=== PATIENT | female | born 1995 | race Caucasian/White ===

== ENCOUNTER 2019-01-02 16:00 | Emergency (ER) | payer OTHER ==
--- NOTE | 2019-01-02 16:33 | ED Physician Documentation ---
PD HPI URI - Stated complaint Stated Complaint: SORE THROAT RT EAR PX - Chief complaint Chief Complaint: Heent - History obtained from History obtained from: Patient - History of Present Illness Timing - onset: How many weeks ago (3) Timing duration: Weeks (3) Timing details: Gradual onset Associated symptoms: Ear pain, Sore throat. No: Fever, Chills Improves by: Nothing Worsened by: Other (nothing) Recently seen: Clinic - Additional information Additional information: patient with L ear pain, sore throat x 3 weeks. Was placed on pseudophed and penicillin and ibuprofen. no fevers or chills. no drainage from the ears. Review of Systems Constitutional: denies: Fever, Chills Nose: reports: Congestion. 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 HEENT: None Psych: None Musculoskeletal: None Derm: None - Past Surgical History Past Surgical History: No - Present Medications Home Medications: Ambulatory Orders Medication Instructions Recorded Confirmed Amox/Clav 875/125 [Augmentin] 1 each PO Q12H #20 tablet 01/02/19 predniSONE [Prednisone] 40 mg PO DAILY #10 tablet 01/02/19 - Allergies Allergies/Adverse Reactions: Allergies Allergy/AdvReac Type Severity Reaction Status Date / Time morphine AdvReac Respiratory Verified 01/02/19 16:10 - Social History Does the pt smoke?: No Smoking Status: Never smoker Does the pt drink ETOH?: No Does the pt have substance abuse?: No - Immunizations Immunizations are current?: Yes - POLST Patient has POLST: No PD ED PE NORMAL - Vitals Vital signs reviewed: Yes - General General: Alert and oriented X 3, No acute distress - HEENT HEENT: Moist mucous membranes, Pharynx benign (posterior oropharygeal erythema without tonsillar exudates, uvula midline, normal phonation.), Other (L TM normal, R TM is erythematous and dull. ) - Neck Neck: Supple, no meningeal sign, No adenopathy - Cardiac Cardiac: RRR, Strong equal pulses - Respiratory Respiratory: No respiratory distress, Clear bilaterally - Abdomen Abdomen: Soft, Non tender, Non distended - Back Back: No CVA TTP, No spinal TTP - Derm Derm: Warm and dry, No rash - Extremities Extremities: No edema - Neuro Neuro: Alert and oriented X 3 - Psych Psych: Normal mood, Normal affect Results - Vitals Vitals: Vital Signs - 24 hr 01/02/19 01/02/19 16:07 17:16 Temperature 36.8 C Heart Rate 100 80 Respiratory 18 18 Rate Blood Pressure 143/93 H 112/56 L O2 Saturation 99 99 Oxygen O2 Source Room air PD MEDICAL DECISION MAKING - ED course Complexity details: considered differential, d/w patient ED course: 23-year-old female with what appears to be recurrent strep pharyngitis and a right acute otitis media. Will place on Augmentin as she has recently been on penicillin. Also given dexamethasone. She is well-appearing, nontoxic. Afebrile. No peritonsillar or retropharyngeal abscess. Patient counseled regarding signs and symptoms for which I believe and urgent re-evaluation would be necessary. Patient with good understanding of and agreement to plan and is comfortable going home at this time This document was made in part using voice recognition software. While efforts are made to proofread this document, sound alike and grammatical errors may occur. Departure - Departure Disposition: 01 Home, Self Care Clinical Impression: Strep pharyngitis Otitis media Qualifiers: Otitis media type: suppurative Chronicity: acute Laterality: right Recurrence: non-recurrent Spontaneous tympanic membrane rupture: without spontaneous rupture Qualified Code(s): H66.001 - Acute suppurative otitis media without spontaneous rupture of ear drum, right ear Condition: Good Instructions: ED Otitis Media Acute Adult, ED Strep Pharyngitis Conf Follow-Up: your,doctor in 1 week [Other] Prescriptions: Amox/Clav 875/125 [Augmentin] 1 each PO Q12H #20 tablet predniSONE [Prednisone] 40 mg PO DAILY #10 tablet Comments: Take all antibiotics until gone. Return if you worsen. Follow-up with your doc tor for further care. Discharge Date/Time: 01/02/19 17:16
[2019-01-02] MEDS ORDERED: DEXAMETHASONE 10 MG/ML VIAL PO STA (16:37)
[2019-01-02] MEDS ORDERED: CHERRY SYRUP 10 ML UDC PO ONE (16:37)
[2019-01-02] MEDS ORDERED: AMOX/CLAV 875 MG/125 MG TABLET PO STA (16:37)
[2019-01-02 17:18] VITALS: BP 112/56
== END 2019-01-02 17:16 | disposition home or self-care (01) ==
LOC: ED 16:00
DX: J02.0 Streptococcal pharyngitis (principal); H66.001 Acute suppurative otitis media without spontaneous rupture of ear drum, right ear
CPT/HCPCS: 99282; 99284; A9270

== ENCOUNTER 2019-08-14 17:44 | Emergency (ER) | payer OTHER ==
[2019-08-14 18:20] LABS: BILIRUBIN,URINE NEGATIVE (NEGATIVE); GLUCOSE, URINE (UA) NEGATIVE (NEGATIVE); KETONES,URINE (UA) NEGATIVE (NEGATIVE); LEUKOCYTE ESTERASE, URINE NEGATIVE (NEGATIVE); NITRITE,URINE NEGATIVE (NEGATIVE); OCCULT BLOOD,URINE NEGATIVE (NEGATIVE); PH,URINE 5.5 PH (5.0-7.5); PROTEIN,URINE NEGATIVE (NEGATIVE); UROBILINOGEN,URINE 0.2 (NORMAL) E.U./dL (NORMAL)
[2019-08-14 18:21] LABS: CLARITY,URINE CLEAR (CLEAR); HCG UR QUAL NEGATIVE
[2019-08-14] MEDS ORDERED: MELOXICAM 7.5 MG TABLET PO STA (18:29)
--- NOTE | 2019-08-14 18:31 | ED Physician Documentation ---
History of Present Illness - Stated complaint Stated Complaint: ABD PX - Chief complaint Chief Complaint: Abd Pain - History obtained from History obtained from: Patient - History of Present Illness Timing: How many days ago (3) Pain level max: 8 Pain level now: 8 - Additonal information Additional information: 23-year-old female complains of increasing lower abdominal pain over the past several days. Worse with movement and better with rest. No vaginal bleeding or discharge. Denies any STD exposure. No dysuria. Denies any possibility of . No fevers. No vomiting. No diarrhea or constipation. She is not breast-feeding or trying to become . Has never had similar symptoms. 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 HEENT: None Psych: None Musculoskeletal: None Derm: None - Past Surgical History Past Surgical History: No - Present Medications Home Medications: Ambulatory Orders Medication Instructions Recorded Confirmed Amox/Clav 875/125 [Augmentin] 1 each PO Q12H #20 tablet 01/02/19 predniSONE [Prednisone] 40 mg PO DAILY #10 tablet 01/02/19 Doxycycline Hyclate 100 mg PO BID #28 capsule 08/14/19 Meloxicam [Mobic] 7.5 mg PO BID PRN #20 tablet 08/14/19 - Allergies Allergies/Adverse Reactions: Allergies Allergy/AdvReac Type Severity Reaction Status Date / Time morphine AdvReac Respiratory Verified 08/14/19 17:49 - Social History Does the pt smoke?: No Smoking Status: Never smoker Does the pt drink ETOH?: No Does the pt have substance abuse?: No - Immunizations Immunizations are current?: Yes - POLST Patient has POLST: No PD ED PE NORMAL - Vitals Vital signs reviewed: Yes - General General: Alert and oriented X 3, No acute distress, Well developed/nourished - HEENT HEENT: Moist mucous membranes - Neck Neck: Supple, no meningeal sign - Cardiac Cardiac: RRR - Respiratory Respiratory: Clear bilaterally - Abdomen Abdomen: Normal bowel sounds, Soft, Non distended, Other (Tender to palpation left sided pelvis, mild tender right side of the pelvis. No peritoneal signs.) - Female Female : Dishwasher present (Marzena RN), Other (Clear/yellow vaginal discharge. Positive cervical motion tenderness. No ovarian fullness. Normal external exam.) - Back Back: No spinal TTP - Derm Derm: Warm and dry, No rash - Extremities Extremities: No edema - Neuro Neuro: Alert and oriented X 3 - Psych Psych: Normal mood, Normal affect Results - Vitals Vitals: Vital Signs - 24 hr 08/14/19 08/14/19 08/14/19 17:49 17:52 20:44 Temperature 37.3 C 37.1 C Heart Rate 85 80 Respiratory 16 16 Rate Blood Pressure 179/104 H 143/93 H O2 Saturation 100 100 Oxygen O2 Source Room air - Labs Labs: Microbiology 08/14/19 21:03 Wet Prep - Final Genital - Cervix Laboratory Tests 08/14/19 08/14/19 08/14/19 18:10 20:15 20:15 WBC 4.6 L RBC 4.89 Hgb 12.0 Hct 38.0 MCV 77.7 L MCH 24.5 L MCHC 31.6 L RDW 14.7 Plt Count 210 MPV 10.0 Neut # (Auto) 2.2 Lymph # (Auto) 1.6 [place] # (Auto) 0.6 Eos # (Auto) 0.2 Baso # (Auto) 0.0 Absolute Nucleated RBC 0.00 Nucleated RBC % 0.0 Sodium 140 Potassium 3.4 L Chloride 104 Carbon Dioxide 26 Anion Gap 10.0 BUN 15 Creatinine 0.7 Estimated GFR (MDRD) 105 Glucose 88 Calcium 9.0 Total Bilirubin 0.3 AST 26 ALT 31 Alkaline Phosphatase 50 Total Protein 7.4 Albumin 4.1 Globulin 3.3 Albumin/Globulin Ratio 1.2 Lipase 42 Urine Color YELLOW Urine Clarity CLEAR Urine pH 5.5 Ur Specific [place] >=1.030 H Urine Protein NEGATIVE Urine Glucose (UA) NEGATIVE Urine Ketones NEGATIVE Urine Occult Blood NEGATIVE Urine Nitrite NEGATIVE Urine Bilirubin NEGATIVE Urine Urobilinogen 0.2 (NORMAL) Ur Leukocyte Esterase NEGATIVE Ur Microscopic Review NOT INDICATED Urine Culture Comments NOT INDICATED Urine HCG, Qual NEGATIVE - Rads (name of study) Pelvic ultrasound Radiology: Prelim report reviewed, EMP read contemporaneously, See rad report (1. Normal pelvic ultrasound. 2. Bilateral inguinal lymphadenopathy. ) PD MEDICAL DECISION MAKING - ED course Complexity details: reviewed results, re-evaluated patient, considered differential, d/w patient ED course: Patient with what appears to be pelvic inflammatory disease. Given Rocephin and will place on doxycycline as well. Pain well controlled. Gonorrhea chlamydia testing were sent as well. Patient is well-appearing, nontoxic. Afebrile. Patient counseled regarding signs and symptoms for which I believe and urgent re-evaluation would be necessary. Patient with good understanding of and agreement to plan and is comfortable going home at this time This document was made in part using voice recognition software. While efforts are made to proofread this document, sound alike and grammatical errors may occur. Departure - Departure Disposition: 01 Home, Self Care Clinical Impression: PID (acute pelvic inflammatory disease) Condition: Good Instructions: ED PID Follow-Up: your,doctor in 1 week [Other] Prescriptions: Doxycycline Hyclate 100 mg PO BID #28 capsule Meloxicam [Mobic] 7.5 mg PO BID PRN #20 tablet PRN Reason: Pain Comments: Take all antibiotics until gone. We are treating you presumptively for pelvic inflammatory disease. This should improve over the next few days. The testing for gonorrhea and chlamydia will return tomorrow. They will call you if a change in antibiotics as needed or if your test is positive and your partners need to be treated.
--- NOTE | 2019-08-14 20:15 | Ultrasound Report ---
Reason: pelvic pain, L Procedure Date: 08/14/2019 Accession Number: [id number] / [id number] Procedure: US - Pelvic w/Transvag+Doppler Comp CPT Code: Final Report FULL RESULT: EXAM: PELVIC ULTRASOUND WITH DOPPLERS CLINICAL HISTORY: Left pelvic pain. COMPARISON: None. TECHNIQUE: Realtime transabdominal imaging performed to identify the uterus and adnexa and as an overview of other pelvic structures, followed by transvaginal imaging for better assessment of the endometrium and adnexa, with static image documentation. Color flow imaging and Doppler spectral analysis was performed to evaluate blood flow to the ovaries given pelvic pain and clinical concern for ovarian torsion. FINDINGS: Uterus: 8.1 x 4.3 x 5.4 cm, volume 98.3 cc. Anteverted position. Normal overall size and echotexture. Masses: None. Endometrium: 14 mm. Unremarkable. Cervix: Nabothian cyst. Otherwise unremarkable. Right Ovary: 3.1 x 2.5 x 3.2 cm, volume 13 cc. Normal echotexture. Arterial and venous blood flow are present. PSV 7.5 cm/sec. RI 0.8. Adnexa are unremarkable. Left Ovary: 2.9 x 2.1 x 3.1 cm, volume 10 cc. Normal echotexture. Arterial and venous blood flow are present. PSV 7.1 cm/sec. RI 0.7. Adnexa are unremarkable. Free Fluid: Trace simple appearing free fluid in cul-de-sac, likely physiologic. Other: Bilateral inguinal lymphadenopathy. The largest lymph node on the right 1.3 cm and the largest in the left measures 1.5 cm. IMPRESSION: 1. Normal pelvic ultrasound. 2. Bilateral inguinal lymphadenopathy. RADIA
[2019-08-14 20:25] LABS: BASOPHILS % (AUTO) 0.9 %; EOSINOPHILS # (AUTO) 0.2 10^3/uL (0.0-0.7); EOSINOPHILS % (AUTO) 4.1 %; LYMPHOCYTES # (AUTO) 1.6 10^3/uL (1.5-3.5); LYMPHOCYTES % (AUTO) 34.5 %; MEAN CORPUSCULAR HEMOGLOBIN 24.5 pg (27.0-31.0); MEAN CORPUSCULAR HGB CONC 31.6 g/dL (32.0-36.0); MEAN CORPUSCULAR VOLUME 77.7 fL (81.0-99.0); MONOCYTES # (AUTO) 0.6 10^3/uL (0.0-1.0); MONOCYTES % (AUTO) 12.4 %; NEUTROPHILS # (AUTO) 2.2 10^3/uL (1.5-6.6); NEUTROPHILS % (AUTO) 47.9 %; PLT - PLATELET COUNT 210 10^3/uL (130-450); RED BLOOD COUNT 4.89 10^6/uL (4.20-5.40); RED CELL DISTRIBUTION WIDTH 14.7 % (12.0-15.0); WHITE BLOOD COUNT 4.6 x10^3/uL (4.8-10.8)
[2019-08-14] MEDS ORDERED: IOVERSOL 320 100 ML VIAL IVP ONE (20:27)
[2019-08-14 20:39] LABS: ALBUMIN 4.1 g/dL (3.2-5.5); ALBUMIN/GLOBULIN RATIO 1.2 (1.0-2.2); BILIRUBIN,TOTAL 0.3 mg/dL (0.2-1.0); CREATININE 0.7 mg/dL (0.4-1.0); TOTAL PROTEIN 7.4 g/dL (6.7-8.2)
[2019-08-14] MEDS ORDERED: cefTRIAXone 1 GM VIAL IVP STA (21:10)
[2019-08-14] MEDS ORDERED: DOXYCYCLINE 100 MG TABLET PO STA (21:15)
[2019-08-14 22:03] VITALS: BP 149/94
[2019-08-14 23:24] LABS: CANDIDA GROUP DNA NEGATIVE (NEGATIVE); CANDIDA KRUSEI DNA NEGATIVE (NEGATIVE); TRICHOMONAS VAGINALIS DNA NEGATIVE (NEGATIVE)
[2019-08-15 13:17] LABS: TRICHOMONAS VAGINALIS DNA NEGATIVE (NEGATIVE)
== END 2019-08-14 22:07 | disposition home or self-care (01) ==
LOC: ED 17:44
DX: N73.9 Female pelvic inflammatory disease, unspecified (principal)
CPT/HCPCS: 36415; 76830; 76856; 80053; 81003; 81025; 83690; 85025; 87210; 87481; 87491; 87591; 87661; 87801; 93975; 96374; 99283; 99284; A9270; 81001; 87086

== ENCOUNTER 2020-02-24 11:18 | Emergency (ER) | payer OTHER ==
--- NOTE | 2020-02-24 12:08 | ED Physician Documentation ---
PD HPI CHEST PAIN - Stated complaint Stated Complaint: CHEST PX/SOA - Chief complaint Chief Complaint: Resp - History obtained from History obtained from: Patient - Additional information Additional information: This is a healthy 24-year-old woman with no personal or family history of heart or lung disease. For the last 2 weeks she has had sharp anterior nonradiating chest pain that seems worse at night and when laying flat. It was particularly bad after a fernanda of air hit her today. It was also bad last night. She is short of breath with it. Denies pedal edema or calf pain. No recent travel. No control. Review of Systems Ten Systems: 10 systems reviewed and negative Constitutional: reports: Reviewed and negative Cardiac: reports: Chest pain / pressure. 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 HEENT: None Psych: None Musculoskeletal: None Derm: None - Past Surgical History Past Surgical History: No - Present Medications Home Medications: Ambulatory Orders Medication Instructions Recorded Confirmed Ibuprofen [Motrin] 800 mg PO Q8H PRN #30 tablet 02/24/20 - Allergies Allergies/Adverse Reactions: Allergies Allergy/AdvReac Type Severity Reaction Status Date / Time morphine AdvReac Respiratory Verified 08/14/19 17:49 - Social History Does the pt smoke?: No Smoking Status: Never smoker Does the pt drink ETOH?: No Does the pt have substance abuse?: No - Immunizations Immunizations are current?: Yes - POLST Patient has POLST: No PD ED PE NORMAL - Vitals Vital signs reviewed: Yes - General General: Alert and oriented X 3, No acute distress - HEENT HEENT: PERRL, EOMI - Neck Neck: Supple, no meningeal sign, No bony TTP - Cardiac Cardiac: RRR, No murmur, Other (Tender to the right Costochondral joints which reproduces her pain.) - Respiratory Respiratory: No respiratory distress, Clear bilaterally - Abdomen Abdomen: Non tender - Extremities Extremities: No edema, No calf tenderness / cord - Neuro Neuro: Alert and oriented X 3, Normal speech Results - Vitals Vitals: Vital Signs - 24 hr 02/24/20 02/24/20 11:21 11:23 Temperature 36.8 C Heart Rate 77 72 Respiratory 18 16 Rate Blood Pressure 150/97 H 150/97 H O2 Saturation 99 100 Oxygen O2 Source Room air - EKG (time done) 1127 Rate: Rate (enter#) (78) Rhythm: NSR Corn: Normal Intervals: Normal CT QRS: Normal Ischemia: Normal ST segments Computer interpretation: Agree with computer - Labs Labs: Laboratory Tests 02/24/20 02/24/20 02/24/20 11:30 11:30 12:05 WBC 6.8 RBC 5.69 H Hgb 14.4 Hct 45.6 MCV 80.1 L MCH 25.3 L MCHC 31.6 L RDW 15.3 H Plt Count 281 MPV 10.2 Neut # (Auto) 4.0 Lymph # (Auto) 2.3 [place] # (Auto) 0.4 Eos # (Auto) 0.1 Baso # (Auto) 0.1 Absolute Nucleated RBC 0.00 Nucleated RBC % 0.0 Sodium 136 Potassium 3.6 Chloride 102 Carbon Dioxide 23 Anion Gap 11.0 BUN 13 Creatinine 0.8 Estimated GFR (MDRD) 89 Glucose 92 Calcium 9.6 Total Bilirubin 0.6 AST 23 ALT 17 Alkaline Phosphatase 62 Total Protein 8.7 H Albumin 4.9 Globulin 3.7 Albumin/Globulin Ratio 1.3 Lipase 44 Urine Color YELLOW Urine Clarity HAZY Urine pH 6.0 Ur Specific [place] <=1.005 Urine Protein NEGATIVE Urine Glucose (UA) NEGATIVE Urine Ketones NEGATIVE Urine Occult Blood NEGATIVE Urine Nitrite NEGATIVE Urine Bilirubin NEGATIVE Urine Urobilinogen 0.2 (NORMAL) Ur Leukocyte Esterase MODERATE H Urine RBC 0-5 Urine WBC 11-25 H Ur Squamous Epith Cells MANY Squamous H Urine Bacteria Few Ur Microscopic Review INDICATED Urine Culture Comments NOT INDICATED Urine HCG, Qual NEGATIVE - Rads (name of study) 1v chest Radiology: EMP read contemporaneously (NAD) PD MEDICAL DECISION MAKING - ED course ED course: I considered pulmonary embolism in this patient. Clinically the pretest probability of pulmonary embolism is less than 15%. I applied to the PERC rules as follows: The patient's age is under 50, heart rate less than 100, oxygen saturation greater than 94%, the patient does not have a history of DVT or PE. Patient has no recent trauma or surgery. The patient has no hemoptysis. The patient is not on exogenous estrogens. The patient does not have clinical signs suggesting DVT. As such the patient ruled out for pulmonary embolism by PERC criteria. HEART Score 0 Departure - Departure Disposition: 01 Home, Self Care Clinical Impression: Costochondritis Condition: Good Record reviewed to determine appropriate education?: Yes Instructions: ED Chest Pain Costochondritis Prescriptions: Ibuprofen [Motrin] 800 mg PO Q8H PRN #30 tablet PRN Reason: PAIN &/OR FEVER Comments: Call your doctor to arrange a follow-up appointment, make the next available appointment. In the interim, return anytime if worse or if new symptoms develop.
[2020-02-24 12:15] LABS: BASOPHILS # (AUTO) 0.1 10^3/uL (0.0-0.1); BASOPHILS % (AUTO) 0.7 %; EOSINOPHILS # (AUTO) 0.1 10^3/uL (0.0-0.7); EOSINOPHILS % (AUTO) 1.9 %; HGB - HEMOGLOBIN 14.4 g/dL (12.0-16.0); LYMPHOCYTES # (AUTO) 2.3 10^3/uL (1.5-3.5); LYMPHOCYTES % (AUTO) 33.3 %; MEAN CORPUSCULAR HEMOGLOBIN 25.3 pg (27.0-31.0); MEAN CORPUSCULAR HGB CONC 31.6 g/dL (32.0-36.0); MEAN CORPUSCULAR VOLUME 80.1 fL (81.0-99.0); MEAN PLATELET VOLUME 10.2 fL (7.9-10.8); MONOCYTES # (AUTO) 0.4 10^3/uL (0.0-1.0); MONOCYTES % (AUTO) 5.2 %; NEUTROPHILS % (AUTO) 58.6 %; PLT - PLATELET COUNT 281 10^3/uL (130-450); RED BLOOD COUNT 5.69 10^6/uL (4.20-5.40); RED CELL DISTRIBUTION WIDTH 15.3 % (12.0-15.0); WHITE BLOOD COUNT 6.8 x10^3/uL (4.8-10.8)
[2020-02-24 12:20] LABS: BILIRUBIN,URINE NEGATIVE (NEGATIVE); GLUCOSE, URINE (UA) NEGATIVE (NEGATIVE); KETONES,URINE (UA) NEGATIVE (NEGATIVE); LEUKOCYTE ESTERASE, URINE MODERATE (NEGATIVE); NITRITE,URINE NEGATIVE (NEGATIVE); OCCULT BLOOD,URINE NEGATIVE (NEGATIVE); PROTEIN,URINE NEGATIVE (NEGATIVE); UROBILINOGEN,URINE 0.2 (NORMAL) E.U./dL (NORMAL)
[2020-02-24 12:21] LABS: ALBUMIN 4.9 g/dL (3.2-5.5); ALBUMIN/GLOBULIN RATIO 1.3 (1.0-2.2); BILIRUBIN,TOTAL 0.6 mg/dL (0.2-1.0); CALCIUM 9.6 mg/dL (8.5-10.3); CREATININE 0.8 mg/dL (0.4-1.0); TOTAL PROTEIN 8.7 g/dL (6.7-8.2)
[2020-02-24 12:29] LABS: CLARITY,URINE HAZY (CLEAR); HCG UR QUAL NEGATIVE
--- NOTE | 2020-02-24 12:32 | XRAY Report ---
PROCEDURE: Chest 1 View X-Ray INDICATIONS: Chest Pain TECHNIQUE: One view of the chest was acquired. COMPARISON: None FINDINGS: Surgical changes and devices: None. Lungs and pleura: No pleural effusions or pneumothorax. Lungs are clear. Mediastinum: Mediastinal contours appear normal. Heart size is normal. Bones and chest wall: No suspicious bony lesions. Overlying soft tissues appear unremarkable. IMPRESSION: No acute cardiopulmonary disease process. Reviewed by: Maddie Martin MD, PhD on 02/24/2020 12:31 PM PDT Approved by: Maddie Martin MD, PhD on 02/24/2020 12:31 PM PDT Station ID: [id number]
[2020-02-24 12:36] LABS: BACTERIA,URINE Few /HPF (None Seen); RBC,URINE 0-5 /HPF (0-5); SQUAMOUS EPITHELIAL CELL,UR MANY Squamous (<= Few)
[2020-02-24 13:04] VITALS: BP 140/85
== END 2020-02-24 13:04 | disposition home or self-care (01) ==
LOC: ED 11:18
DX: M94.0 Chondrocostal junction syndrome [Tietze] (principal)
CPT/HCPCS: 36415; 71045; 80053; 81001; 81003; 81025; 83690; 84484; 85025; 87086; 93005; 99284